=== PATIENT | female | born 2000 | race Caucasian/White ===

== ENCOUNTER 2023-06-14 12:40 | Emergency (ER) | payer MEDICAID ==
[~2023-06-14] VITALS: Ht 157.5 cm; Wt 74.8 kg
[2023-06-14 17:19] LABS: APPEARANCE,URINE CLOUDY (CLEAR); BILIRUBIN,URINE NEGATIVE (NEGATIVE); BLOOD, URINE TRACE-INTA Ery/uL (NEGATIVE); COLOR,URINE YELLOW (YELLOW); KETONES,URINE 3+ mg/dL (NEGATIVE); LEUKOCYTE ESTERASE ,URINE 3+ (NEGATIVE); NITRITE, URINE POSITIVE (NEGATIVE); PH,URINE 6.5 (5.0-8.0); PROTEIN,URINE 1+ mg/dl (NEGATIVE); UGLUCOSE NEGATIVE (NEGATIVE)
[2023-06-14 17:22] LABS: PREGNANCY TEST URINE QUAL NEGATIVE (NEGATIVE)
[2023-06-14 17:25] LABS: WBC,URINE 51-80 /HPF (0-3)
[2023-06-14 17:26] LABS: ADD URINE CULTURE YES; BACTERIA,URINE 3+ /HPF (None Seen); MUCUS,URINE Few /LPF (None Seen)
[2023-06-14] MEDS ORDERED: DOXY100C2 PO (17:40)
[2023-06-14] MEDS ORDERED: VALA10002 PO (17:40)
[2023-06-14] MEDS ORDERED: NITR100C6 PO (17:41)
[2023-06-14] MEDS ORDERED: CEFTRIAXONE 500 MG VIAL ONE (17:46)
[2023-06-14] MEDS ORDERED: LIDOCAINE HCL/MPF 1% 30 ML VIAL IJ ONE (17:46)
[2023-06-14 17:54] VITALS: BP 121/81; TEMP 98.1; O2SAT 100
[2023-06-14] MEDS ORDERED: CEFTRIAXONE 500 MG VIAL IM ONE (18:00)
[2023-06-16 03:07] LABS: CHLAMYDIA TRACHOMATIS NAA Negative (Negative); NEISSERIA GONORRHOEAE NAA Negative (Negative)
== END 2023-06-14 17:54 | disposition home or self-care (01) ==
LOC: ER 12:52
DX: N89.8 Other specified noninflammatory disorders of vagina (principal); R10.2 Pelvic and perineal pain
CPT/HCPCS: 99284; 96372; 87086; 84703; 81001; 87491; 87591; J0696; J3490